=== PATIENT | female | born 1980 | race Caucasian/White ===

== ENCOUNTER 2016-10-20 10:01 | Emergency (ER) | payer MEDICAID | END 2016-10-20 10:38 | disposition home or self-care (01) | LOC: D.ER 10:01 | DX: H60.91 Unspecified otitis externa, right ear (principal) ==

== ENCOUNTER 2016-10-27 19:15 | Emergency (ER) | payer MEDICAID | END 2016-10-27 22:35 | disposition home or self-care (01) | LOC: D.ER 19:15 | DX: H66.93 Otitis media, unspecified, bilateral (principal); H92.03 Otalgia, bilateral; J06.9 Acute upper respiratory infection, unspecified; F17.200 Nicotine dependence, unspecified, uncomplicated ==

== ENCOUNTER 2019-01-13 21:09 | Emergency (ER) | payer MEDICAID ==
[~2019-01-13] VITALS: Ht 167.6 cm; Wt 81.8 kg
[2019-01-13 21:24] VITALS: Ht 167.6 cm; Wt 81.8 kg
[2019-01-13] MEDS ORDERED: AMOXICILLIN500 M1 PO (21:52)
[2019-01-13] MEDS ORDERED: TYLENOL W/CODEI1 TAB PO (21:52)
[2019-01-13 22:09] VITALS: BP 165/87
== END 2019-01-13 22:11 | disposition home or self-care (01) ==
LOC: D.ER 21:09
DX: K04.7 Periapical abscess without sinus (principal); F17.200 Nicotine dependence, unspecified, uncomplicated

== ENCOUNTER 2020-09-19 22:44 | Emergency (ER) | payer BC ==
[~2020-09-19] VITALS: Ht 167.6 cm; Wt 80.9 kg
[~2020-09-19 22:44] MED LIST: ACETAMINOPHEN500 M1 PO; AMOXICILLIN500 M1 PO; CYCLOBENZAPRINE10 MG PO; ORAL ANALGESIC9 GM TOPICAL; PENICILLIN V P500 MG PO; TYLENOL W/CODEI1 TAB PO; ZOFRAN ODT4 MG/UDTAB PO
[2020-09-19 22:47] VITALS: Ht 167.6 cm; Wt 80.9 kg
[2020-09-19] MEDS ORDERED: LINZESS145 MCG PO (22:51)
[2020-09-19] MEDS ORDERED: ZYPREXA15 MG PO (22:52)
[2020-09-19] MEDS ORDERED: LEXAPRO20 MG PO (22:52)
[2020-09-19] MEDS ORDERED: AMBIEN10 MG PO (22:52)
[2020-09-19] MEDS ORDERED: DITROPAN XL 1010 MG PO (22:52)
[2020-09-19 23:22] LABS: EOSINOPHILS 6.6 % (0-7); HEMATOCRIT 39.7 % (36.0-48.0); HEMOGLOBIN 13.5 g/dL (12-16); IMMATURE GRANULOCYTES 0.1 % (0-5); LYMPHOCYTE ABS# 3.19 10x3/uL (1.18-3.74); LYMPHOCYTES 45.4 % (15-50); MCH 30.3 pg (26.0-34.0); MEAN PLATELET VOLUME 9.1 fL (7.4-10.4); MONOCYTES 7.7 % (2-11); NEUTROPHIL ABS# 2.75 10x3/uL (1.56-6.13); NEUTROPHILS 39.2 % (40-80); PLATELET COUNT 283 10x3/uL (130-400); RBC 4.46 10x6/uL (4.00-5.40); RDW 13.2 % (11.5-14.5)
[2020-09-19 23:23] LABS: BILIRUBIN NEGATIVE (NEGATIVE); KETONE NEGATIVE (NEGATIVE); NITRITE NEGATIVE (NEGATIVE); UROBILINOGEN NORMAL mg/dL (< 2)
[2020-09-19 23:37] LABS: ANION GAP 11.1 mmol/L (8-16); CALCIUM 8.8 mg/dL (8.5-10.1); CARBON DIOXIDE 26.7 mmol/L (21.0-32.0); CREATININE - SERUM 1.1 mg/dL (0.6-1.3); POTASSIUM - SERUM 3.8 mmol/L (3.5-5.1)
[2020-09-19 23:52] LABS: ALBUMIN 3.8 g/dL (3.4-5.0); BILIRUBIN - TOTAL 0.17 mg/dL (0.2-1.3); PROTEIN - SERUM 6.7 g/dL (6.4-8.2)
--- NOTE | 2020-09-20 00:32 | NUR ---
PATIENT IN ER FOR ABDOMINAL PAIN, IBS AND BLADDER CONTRACTIONS. SHE SAYS THAT SHE IS IN A GOOD PLACE RIGHT NOW IN HER LIFE AND IS NOT SUICIDAL. 1800 NUMBER GIVEN FOR FUTURE REFERENCE.
[2020-09-20] MEDS ORDERED: BENTYL10 MG PO (05:18)
[2020-09-20 05:32] VITALS: BP 101/62
== END 2020-09-20 05:33 | disposition home or self-care (01) ==
LOC: D.ER 22:44
PROVIDERS: Family Medicine
DX: R10.9 Unspecified abdominal pain (principal)

== ENCOUNTER 2020-11-19 20:55 | Emergency (ER) | payer BC ==
[2020-09-19 22:47] VITALS: Ht 167.6 cm
[~2020-11-19 20:55] MED LIST changes: +AMBIEN10 MG PO; +BENTYL10 MG PO; +DITROPAN XL 1010 MG PO; +LEXAPRO20 MG PO; +LINZESS145 MCG PO; +ZYPREXA15 MG PO
[2020-11-19] MEDS ORDERED: AUGMENTIN 875-11 TAB PO (21:24)
[2020-11-19] MEDS ORDERED: NAPROSYN500 MG PO (21:24)
[2020-11-19 22:02] VITALS: BP 124/67
== END 2020-11-19 22:02 | disposition home or self-care (01) ==
LOC: D.ER 20:55
DX: H66.91 Otitis media, unspecified, right ear (principal); H92.01 Otalgia, right ear

== ENCOUNTER 2020-11-23 20:34 | Emergency (ER) | payer BC ==
[~2020-11-23] VITALS: Ht 167.6 cm; Wt 81.8 kg
[~2020-11-23 20:34] MED LIST changes: +AUGMENTIN 875-11 TAB PO; +NAPROSYN500 MG PO
[2020-11-23 20:52] VITALS: BP 132/71; Ht 167.6 cm; Wt 81.8 kg
[2020-11-23] MEDS ORDERED: KLONOPIN1 MG PO (20:55)
[2020-11-23] MEDS ORDERED: ZYPREXA15 MG PO (20:55)
[2020-11-23] MEDS ORDERED: AUGMENTIN 875-11 TAB PO (21:29)
--- NOTE | 2020-11-23 22:30 | NUR ---
DR. CARDENAS NOTIFIRED AND REVIEWED PT'S BEHAVIOR AND ASSESSMENT RESULTS. PT IS A LOW RISK PER DR. CARDENAS. DR. CARDENAS STATED TO GIVE RESOURCES TO PT AT TIME OF DISCHARGE. NO FURTHER ORDERS AT THIS TIME. RESOURCES REVIEWED WITH PT AND SHE VERBALIZED UNDERSTANDING.
== END 2020-11-24 00:54 | disposition home or self-care (01) ==
LOC: D.ER 20:34
DX: H66.91 Otitis media, unspecified, right ear (principal); H92.01 Otalgia, right ear; Z72.0 Tobacco use